=== PATIENT | female | born 1945 | race Caucasian/White ===

== ENCOUNTER 2016-03-28 16:06 | Emergency (ER) | payer OTHER, MEDICARE ==
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
[2016-03-28 16:33] VITALS: BP 122/62; PULSE 75; RESP 18; TEMP 98; O2SAT 97
== END 2016-03-28 16:50 | disposition home or self-care (01) ==
LOC: CED 16:06
DX: S16.1XXA Strain of muscle, fascia and tendon at neck level, initial encounter (principal); V43.12XA Car passenger injured in collision with other type car in nontraffic accident, initial encounter; Y92.410 Unspecified street and highway as the place of occurrence of the external cause; Y99.8 Other external cause status
CPT/HCPCS: G0463-PO